=== PATIENT | female | born 1955 | race Caucasian/White ===

== ENCOUNTER 2016-05-16 15:21 | Emergency (ER) | payer OTHER ==
[~2016-05-16] VITALS: Wt 77.0 kg
[~2016-05-16 15:21] MED LIST: DIAZ-90 PO; HYD25 PO; HYDR-762 PO; IBUP-1542 PO; PANT40TA3 PO; RANI300T PO
[2016-05-16] MEDS ORDERED: KETOROLAC 30 MG INJ IM STA (17:02)
--- NOTE | 2016-05-16 17:44 | RADRPT ---
PROCEDURE: US right lower extremity veins. CLINICAL INDICATION: Right leg pain and swelling. TECHNIQUE: Multiple longitudinal and transverse images of the right lower extremity veins were obt ained with gutierrez scale and color Doppler imaging. The common femoral vein, femoral vein, and poplitea l vein were evaluated. 2D grayscale measurements with compression sonography, pulsed Doppler, color Doppler, and pulsed Doppler with augmentation. COMPARISON: No prior studies are available for comparison. FINDINGS: The right common femoral, femoral and popliteal veins are normally compressible throughout. Color f low demonstrates normal filling of the vessels. Normal waveforms are visualized and there is normal response to augmentation. IMPRESSION: 1. No evidence of deep vein thrombosis involving the right lower extremity. RPTAT: QQ .Cuco Morton MD, MD Date Time Electronically viewed and signed by .Cuco Morton MD, on 05/16/2016 17:44 .R/
--- NOTE | 2016-05-16 18:03 | RADRPT ---
PROCEDURE: XR Knee. CLINICAL INDICATION: Right knee pain. TECHNIQUE: AP, lateral and oblique and tunnel views of the right knee were obtained. The images re viewed on a PACS workstation. COMPARISON: None. FINDINGS: The distal femur and proximal tibia/fibula are normal in appearance. There is no fracture. The medi al and lateral compartment joint spaces are preserved. There is no abnormal calcification. There i s no significant joint effusion. Hoffa's fat pad is normal in appearance. There is normal appearan ce of the patellofemoral joint. The soft tissues are unremarkable. IMPRESSION: 1. Normal radiographs of the right knee. No significant degenerative changes or evidence of fractur e. RPTAT: HGAS .Elias Wells MD, MD Date Time Electronically viewed and signed by .Elias Wells MD, on 05/16/2016 18:03 .S/
[2016-05-16] MEDS ORDERED: FAMOTIDINE 20 MG TAB PO STA (18:11)
[2016-05-16] MEDS ORDERED: ULT50 PO (18:12)
--- NOTE | 2016-05-16 18:50 | ERD ---
ER Documentation Chief Complaint Date/Time DATE: 05/16/16 TIME: 18:48 Chief Complaint RIGHT KNEE, ONSET 3 DAYS, NO INJURY HPI This is a 60-year-old female presenting to the emergency department complaining of right knee pain for the past 3 days. She rates the pain severe, she states that the pain is increased in the morning and gets better throughout the day. Patient denies any trauma. She states that she has a history of arthritis. She denies any fevers, numbness or tingling. Patient has tried ibuprofen without any relief ROS All systems reviewed and are negative except as per history of present illness. Medications Home Meds Active Scripts Tramadol HCl (Tramadol HCl) 50 Mg Tablet, 50 MG PO Q4 Y for PAIN, #20 TAB Prov:FLORINDA GALVAN PA-C 05/16/16 Hydrocodone Bit-Acetaminophen* (Rembrandt*) 10-325 Mg Tablet, 1 TAB PO Q6 Y for PAIN , #7 TAB Prov:HUGO COTO MD 02/13/15 Diazepam* (Valium*) 5 Mg Tablet, 5 MG PO QHS Y for ANXIETY, #5 TAB Prov:HUGO COTO MD 02/13/15 Ibuprofen* (Motrin*) 600 Mg Tab, 600 MG PO Q6H Y for PAIN AND OR ELEVATED TEMP, #30 Prov:HUGO COTO MD 02/13/15 Reported Medications Pantoprazole* (Protonix*) 40 Mg Tablet.dr, 40 MG PO DAILY, TAB 02/13/15 Ranitidine Hcl* (Ranitidine Hcl*) 300 Mg Tablet, 300 MG PO HS, TAB 02/13/15 Hydrochlorothiazide* (Hydrochlorothiazide*) 25 Mg Tab, 25 MG PO DAILY, TAB 02/13/15 Allergies Allergies: Coded Allergies: metoclopramide HCl (Verified Allergy, Unknown, 02/13/15) PMhx/Soc History of Surgery: Yes (R knee OPA) Anesthesia Reaction: Yes Hx Neurological Disorder: No Hx Respiratory Disorders: No Hx Cardiac Disorders: No Hx Psychiatric Problems: No Hx Miscellaneous Medical Probl: Yes (Heital hernia, HTN) Hx Alcohol Use: No Hx Substance Use: No Hx Tobacco Use: No Smoking Status: Never smoker Physical Exam Vitals Vital Signs Date Time Temp Pulse Resp B/P Pulse Ox O2 Delivery O2 Flow Rate FiO2 05/16/16 15:28 98.3 110 18 182/93 98 Physical Exam General: WD/WN, in no apparent distress, non-toxic appearing HENT: NC/AT Eyes: Conjunctiva normal Neck: Supple Pulm: Clear to auscultation, normal labored breathing; no wheezing/rales/ rhonchi heard CV: Good capillary refill GI: Non-distended, no guarding Back: No masses Ext: Tender to palpation over the lateral side of the right knee, no swelling, erythema or induration. Patient has full range of motion. Patient has pain with range of motion. No calf swelling, negative Homans sign Neuro: Moves on all fours Skin: intact Psych: Normal mood Results 24 hrs Current Medications Medications (Trade) Dose Ordered Sig/Arturo Route PRN Reason Start Time Stop Time Status Last Admin Dose Admin Ketorolac Tromethamine (Toradol) 30 mg ONCE STAT IM 05/16/16 17:02 05/16/16 17:05 DC 05/16/16 17:13 Famotidine (Pepcid) 20 mg ONCE STAT PO 05/16/16 18:11 05/16/16 18:12 DC 05/16/16 18:31 Procedures/MDM This is a 60-year-old female patient presenting to the emergency department complaining of right knee pain for the past few days. This may be a meniscal versus ligamentous versus iliotibial band syndrome. I will low suspicion for DVT , septic arthritis, osteomyelitis, fracture or dislocation. A duplex of the right low o any was done and was unremarkable for thrombosis. An x-ray of the right knee was unremarkable. Patient was given Toradol in the ED. She is given a knee immobilizer with good fit. She was neurovascularly intact pre-and post treatment. I'll given her strict precautions to return to the ER for any worsening signs or symptoms. I have given her instructions to follow-up with a primary care physician tomorrow to get a referral to see an orthopedist. Patient expressed agreement and understanding of this plan Departure Diagnosis: Primary Impression: Knee pain Laterality: right Chronicity: acute Qualified Code: M25.561 - Acute pain of right knee Condition: Fair Patient Instructions: Knee Pain, Uncertain Cause, Knee Sprain Referrals: DOCTOR,NOT ON STAFF Additional Instructions: FOLLOW UP WITH YOUR PRIMARY CARE PHYSICIAN TOMORROW.Return to this facility if you are not improving as expected. Take all medicines as directed. Return to this facility if you are not improving as expected. La medicina que se le recet puede causarle sueo.NO DEBE MANEJAR NI OPERAR MAQUINARIAS PELIGROSAS mientras esta tomando esta medicina! FLORINDA GALVAN PA-C May 16, 2016 18:50
== END 2016-05-16 18:45 | disposition home or self-care (01) ==
LOC: FTE 15:21
DX: M25.561 Pain in right knee (principal); I10 Essential (primary) hypertension
CPT/HCPCS: 29505; 73562; 93971; J1885; Z7610; 96372

== ENCOUNTER 2017-11-04 15:21 | Emergency (ER) | END 2017-11-04 18:44 | disposition home or self-care (01) ==

== ENCOUNTER 2018-09-09 16:36 | Emergency (ER) | payer OTHER ==
[~2018-09-09] VITALS: Wt 74.6 kg
[~2018-09-09 16:36] MED LIST changes: -DIAZ-90 PO; -HYD25 PO; -HYDR-762 PO; +HYDR25TA6 PO; -IBUP-1542 PO; +LORA-186 PO; -PANT40TA3 PO; +RANI150T5 PO; -RANI300T PO
[2018-09-09 16:40] VITALS: Wt 74.6 kg
[2018-09-09] MEDS ORDERED: KETOROLAC 30 MG INJ IV STA (17:21)
[2018-09-09] MEDS ORDERED: ONDANSETRON 4 MG INJ IV STA (18:54)
[2018-09-09] MEDS ORDERED: BELLADONNA/PHENOBARBITAL TAB PO STA (18:54)
[2018-09-09] MEDS ORDERED: LIDOCAINE/MYLANTA 40 ML BTL PO STA (18:54)
[2018-09-09] MEDS ORDERED: HYDROmorphONE 1 MG/ML SYG IV STA (18:54)
--- NOTE | 2018-09-09 19:18 | ERD ---
ER Documentation Chief Complaint Chief Complaint r. shoulder pain x1 mo and hiatal hernia pain HPI This is a very pleasant 63-year-old female who presents to the emergency department complaining of right shoulder pain for 1 month. The patient had a mechanical trip and fall 1 month ago and landed on her right shoulder. Since that time she is been complaining of severe pain. She states the pain is exacerbated when she attempts to move her arm. She states the pain is 8 out of 10 in intensity. She has not yet seen a physician and is currently waiting to see her PCP to get a referral to a specialist for an MRI. She denies any numbness or tingling of her upper extremities. She is right-handed dominant. She denies any chest pain or pressure that radiates to the neck arm back or jaw. She also has a anal hernia but denies any abdominal pain at this time. ROS All systems reviewed and are negative except as per history of present illness. Medications Home Meds Reported Medications Loratadine* (Claritin*) 10 Mg Tablet, 10 MG PO NEEDED, TAB 11/04/17 Ranitidine Hcl* (Ranitidine Hcl*) 150 Mg Tablet, 150 MG PO HS, #30 TAB 11/04/17 Hydrochlorothiazide* (Hydrochlorothiazide*) 25 Mg Tab, 25 MG PO DAILY, #30 TAB 11/04/17 Allergies Allergies: Coded Allergies: metoclopramide HCl (Verified Allergy, Unknown, 11/04/17) PMhx/Soc History of Surgery: Yes (R knee OPA) Anesthesia Reaction: Yes Hx Neurological Disorder: No Hx Respiratory Disorders: No Hx Cardiac Disorders: Yes (HTN) Hx Psychiatric Problems: No Hx Miscellaneous Medical Probl: Yes (Heital hernia) Hx Alcohol Use: No Hx Substance Use: No Hx Tobacco Use: No Smoking Status: Never smoker Physical Exam Vitals Vital Signs Date Temp Pulse Resp B/P (MAP) Pulse Ox O2 O2 Flow FiO2 Time Delivery Rate 09/09/18 97.8 97 20 125/85 97 16:40 (98) Physical Exam Constitutional:Well-developed. Well-nourished. HEENT:Normocephalic. Atraumatic.Pupils were equal round reactive to light. Moist mucous membranes.No tonsillar exudates. Neck: No nuchal rigidity. No lymphadenopathy. No posterior cervical spine tenderness or step-offs. Respiratory: Not using accessory muscles of respiration.Lungs were clear to auscultation bilaterally. No rhonchi. No rales. No wheezing. Cardiovascular: Regular rate regular rhythm.No murmurs. No rubs were appreciated.S1, S2 normal. Distal pulses are palpable 2+ bilaterally. GI: Abdomen was soft. Nontender. Non Distended. No pulsatile abdominal masses or bruits. No rebound. No guarding. Bowel sounds were present and normal. Muscle skeletal: Full range of motion of both the upper and lower extremities bilaterally.Normal muscle tone.No assymetrical calf tenderness or swelling. It is over the right acromial clavicular joint. Patient has pain with abduction of the right upper extremity. Internal rotation was symmetrical with the left and the right at spinal level T4. Handgrip equal and symmetrical. No obvious bony deformity of the right upper extremity or humerus. Skin: No petechia, no purpura. No lesions on the palms or the soles of the feet. No maculopapular rash. NEURO: Patient was alert, awake, orientated x3.No facial droop. Gait observed and normal with no ataxia.Speech had regular rate and rhythm. No focal neurological deficits. Result Diagram: 09/09/18 1712 09/09/18 1712 Results 24 hrs Laboratory Tests Test 09/09/18 17:12 White Blood Count 6.2 10^3/ul Red Blood Count 4.55 10^6/ul Hemoglobin 14.3 g/dl Hematocrit 42.0 % Mean Corpuscular Volume 92.3 fl Mean Corpuscular Hemoglobin 31.4 pg Mean Corpuscular Hemoglobin Concent 34.0 g/dl Red Cell Distribution Width 12.9 % Platelet Count 310 10^3/UL Mean Platelet Volume 10.1 fl Immature Granulocytes % 0.300 % Neutrophils % 58.5 % Lymphocytes % 29.8 % Monocytes % 8.9 % Eosinophils % 1.9 % Basophils % 0.6 % Nucleated Red Blood Cells % 0.0 /100WBC Immature Granulocytes # 0.020 10^3/ul Neutrophils # 3.6 10^3/ul Lymphocytes # 1.9 10^3/ul Monocytes # 0.6 10^3/ul Eosinophils # 0.1 10^3/ul Basophils # 0.0 10^3/ul Nucleated Red Blood Cells # 0.0 10^3/ul Prothrombin Time 12.3 Sec Prothrombin Time Ratio 1.0 INR International Normalized Ratio 0.90 Activated Partial Thromboplast Time 25.8 Sec Sodium Level 143 mmol/L Potassium Level 3.8 mmol/L Chloride Level 107 mmol/L Carbon Dioxide Level 28 mmol/L Anion Gap 8 Blood Urea Nitrogen 14 mg/dl Creatinine 0.89 mg/dl Est Glomerular Filtrat Rate mL/min > 60 mL/min Glucose Level 98 mg/dl Calcium Level 9.2 mg/dl Total Bilirubin 0.2 mg/dl Direct Bilirubin 0.00 mg/dl Indirect Bilirubin 0.2 mg/dl Aspartate Amino Transf (AST/SGOT) 26 IU/L Alanine Aminotransferase (ALT/SGPT) 29 IU/L Alkaline Phosphatase 160 IU/L Creatine Kinase 42 IU/L Creatine Kinase Index 0.9 Creatinine Kinase MB (Mass) 0.39 ng/ml Troponin I < 0.012 ng/ml B-Type Natriuretic Peptide 131 PG/ML Total Protein 7.5 g/dl Albumin 4.2 g/dl Globulin 3.30 g/dl Albumin/Globulin Ratio 1.27 Current Medications Medications Dose Sig/Arturo Start Time Status Last (Trade) Ordered Route PRN Stop Time Admin Dose Reason Admin Ketorolac 30 mg ONCE STAT 09/09/18 DC 09/09/18 Tromethamine IV 17:21 17:46 (Toradol) 09/09/18 17:23 0.5 mg ONCE STAT 09/09/18 DC 09/09/18 Hydromorphone IV 18:54 19:02 HCl 09/09/18 18:58 (Dilaudid) Ondansetron 4 mg ONCE STAT 09/09/18 DC 09/09/18 HCl (Zofran IV 18:54 19:02 Inj) 09/09/18 18:58 40 ml ONCE STAT 09/09/18 DC 09/09/18 Miscellaneous PO 18:54 19:02 Medication 09/09/18 18:58 (Gi Cocktail (2)) Belladonna/ 2 tab ONCE STAT 09/09/18 DC 09/09/18 Phenobarbital PO 18:54 19:02 () 09/09/18 18:58 Procedures/MDM Is a 63-year-old female that presented to the emergency department with right shoulder pain. Patient had a mechanical fall and had not yet received any radiographic imaging. 2 view shoulder radiograph was ordered and reviewed by myself the radiologist and there is no evidence of a fracture. Compartments are soft of the bilateral upper extremities. There is no electrolyte abnormalities I obtained a 12-lead EKG tracing to rule out for atypical myocardial infarction 12 Lead EKG tracing ordered and reviewed by myself showed: Normal sinus rhythm of 86 bpm and no arrhythmia. GA interval normal. QRS duration normal. No ST segment elevation No ST segment depression. No changes consistent with acute ischemia. The patient had been given Toradol but this did not improve her pain. Therefore she was given Dilaudid and Zofran and was requesting a GI cocktail she states she gets epigastric discomfort when taking medications. I indicated the patient that I cannot rule out ligamentous injury rotator cuff injury and that she would require an outpatient MRI. She is given copies of all of her ancillary laboratory work as well as radiographic imaging. The patient was discharged home in fair condition. They were instructed to return to the emergency department at any time if there was any worsening of their condition. The patient stated they would follow up with their PCP in the next 24-48 hours to initiate a suitable medication regimen under the care of their PCP as well as to allow their PCP to monitor any drug reactions. The patient was discharged home with prescriptions after they gave informed consent to the new medication. They were also fully informed by myself on the adverse effects and adverse drug interactions in order to provide adequate safeguards to prevent possible adverse reactions to medications. Departure Diagnosis: Primary Impression: Right shoulder injury Encounter type: initial encounter Qualified Codes: S49.91XA - Unspecified injury of right shoulder and upper arm, initial encounter Condition: Fair ANDERSON OSORIO MD Sep 09, 2018 19:18
[2018-09-09] MEDS ORDERED: NAPR-985 PO (19:20)
[2018-09-09 19:44] VITALS: BP 143/93; PULSE 73; RESP 18
== END 2018-09-09 19:44 | disposition home or self-care (01) ==
LOC: E/R 16:36
DX: S49.91XA Unspecified injury of right shoulder and upper arm, initial encounter (principal); I10 Essential (primary) hypertension; W01.0XXA Fall on same level from slipping, tripping and stumbling without subsequent striking against object, initial encounter; Y92.9 Unspecified place or not applicable
CPT/HCPCS: 73030; 80053; 82550; 82553; 83880; 84484; 85025; 85610; 85730; 93005; J1170; J1885; J2405; Z7610; 36415; 96374; 96375